=== PATIENT | female | born 1975 | race Two or more races ===

== ENCOUNTER 2024-06-20 10:10 | Emergency (ER) | payer OTHER ==
[~2024-06-20] VITALS: Ht 167.6 cm; Wt 68.0 kg
[2024-06-20] MEDS ORDERED: DOXYCYCLINE HYCLATE 100MG IV ONE (10:45)
[2024-06-20] MEDS ORDERED: DIPHENHYDRAMINE HCL 50 MG/ML VIAL 1ML IV ONE (10:45)
[2024-06-20] MEDS ORDERED: 0.9 % SODIUM CHLORIDE 500 ML IV ONE (10:45)
[2024-06-20] MEDS ORDERED: DIPHENHYDRAMINE HCL 50 MG/ML VIAL 1ML ONE (10:54)
[2024-06-20 11:18] LABS: HEMATOCRIT 38.1 % (36.0-45.00); MEAN CELL VOLUME 90.6 fL (80.00-100.00); MEAN CORPUSCULAR HEMOGLOBIN 30.8 pg (27.00-32.0); PLATELET COUNT 242 K/uL (150-450); RED BLOOD COUNT 4.21 M/uL (4.00-6.00)
[2024-06-20 11:46] LABS: ERYTHROCYTE SEDIMENTATION RATE 17 mm/hr
[2024-06-20 12:12] LABS: ALBUMIN 3.5 gm/dL (3.4-5.0); BILIRUBIN TOTAL 0.47 mg/dL (0.3-1.2); CALCIUM 8.8 mg/dL (8.5-10.1); CREATININE SERUM 0.68 mg/dL (0.55-1.02); GFR 91.59; GLOBULINA 3.7 G/DL (2.4-3.5); POTASSIUM 4.04 mEq/L (3.5-5.1); TOTAL PROTEIN 7.2 gm/dL (6.4-8.2)
[2024-06-20] MEDS ORDERED: CEPHALEXIN750 MG PO (16:18)
== END 2024-06-20 16:24 | disposition home or self-care (01) ==
LOC: ER 10:11
PROVIDERS: General Practice
DX: L03.90 Cellulitis, unspecified (principal); R21 Rash and other nonspecific skin eruption